=== PATIENT | female | born 1995 | race Caucasian/White ===

== ENCOUNTER 2020-01-16 07:28 | Inpatient (IN) ==
[2020-01-16] MEDS ORDERED: PENICILLIN G POTASSIUM 5 MILLIONUNT in DEXTROSE 5 % IN WATER 100 ML IV ONE ×2 (10:08)
[2020-01-16] MEDS ORDERED: DEXTROSE 5%-LACTATED RINGERS 1,000 ML IV PRN (10:08)
[2020-01-16] MEDS ORDERED: ONDANSETRON 4 MG TAB.RAPDIS PO PRN (10:08)
[2020-01-16] MEDS ORDERED: OXYTOCIN/DEXTROSE 5%-WATER 30 UNITS/500 ML BAG IV ONE ×2 (10:08→13:09)
[2020-01-16] MEDS: RINGER'S SOLUTION,LACTATED 1,000 ML IV ONE ×2 (10:24→11:27)
[2020-01-16] MEDS ORDERED: NALOXONE HCL 1 MG/1 ML SYRG IV PRN (11:12)
[2020-01-16] MEDS ORDERED: BUPIVACAINE HCL/0.9 % NACL/PF 250 ML EP PRN (11:12)
[2020-01-16] MEDS ORDERED: ONDANSETRON HCL/PF 2 MG/ML VIAL IV PRN (11:12)
[2020-01-16] MEDS ORDERED: BUPIVACAINE HCL/PF 30 ML VIAL EP SCH (11:15)
--- NOTE | 2020-01-16 11:29 | ANES ---
Anesthesia Pre Procedure Eval Vitals/Labs: Last Vital Signs Temp 36.7 C 01/16/20 07:45 Pulse 90 01/16/20 07:45 Resp 16 01/16/20 07:45 BP 107/71 01/16/20 07:45 Pulse Ox 100 01/16/20 07:45 HOME MEDICATIONS docusate sodium 100 mg capsule 100 mg PO DAILY PRN 08/12/19 [Last Taken Unknown] fluoxetine 20 mg capsule 20 mg PO DAILY 08/12/19 [Last Taken 01/03/20 21:00] ferrous sulfate 325 mg (65 mg iron) tablet 325 mg PO DAILY #30 tab 10/30/19 [Last Taken 01/03/20 21:00] Vits96/Iron Fum/Folic [ S] 1 tab PO DAILY 01/16/20 [Last Taken 01/15/20] Allergies/Adverse Reactions: Allergies Allergy/AdvReac Type Severity Reaction Status Date / Time No Known Allergies Allergy Verified 01/16/20 07:41 - Planned Procedure Planned Procedure: labor epidural Medication List Reviewed:: Yes Allergies Verified: Yes Medical History (Last Reviewed 01/16/20 @ 11:28 by Fabricio Mittal CRNA) Anemia Onset Date: 10/28/19 w/ Depression 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
--- NOTE | 2020-01-16 11:47 | ANES ---
Anesthesia Procedure Note Procedure Note: ANESTHESIA PROCEDURE NOTE Date of Procedure: 01/16/2020. Time of procedure: 1135. Performed by: Fabricio Mittal CRNA Carburetor Repairer: None. Preprocedure diagnosis: Active labor. Post procedure diagnosis: Same. Procedure: Insertion of labor epidural. Indications: The patient is a 24-year-old female in active labor requesting labor epidural for pain management. Findings: See below. Details of the procedure: The patient was placed in a sitting position. DuraPrep as well as Betadine swabs X3 was applied to the patient's back. Patient was then draped in a sterile fashion. Lidocaine 1% was infiltrated to the skin and subcutaneous tissues at the level of the L3-4 interspace. The epidural space was identified using a 18-gauge Tuohy needle with [id number] technique. Epidural catheter was inserted to a depth of 10 centimeters at skin. Negative test dose was elicited using 3 mL of 1.5% preservative-free lidocaine plus epinephrine 1 200,000. The epidural catheter was then taped and secured in place. A loading dose of 8 mL of 0.25% preservative-free bupivacaine was administered to the epidural catheter after negative aspiration for blood and CSF. EBL: Minimal. Fluids: N/A. Specimen: N/A. Post procedure condition: The patient tolerated the procedure well. No complications were noted. Thank you for this consultation. Fabricio Mittal CRNA
--- NOTE | 2020-01-16 11:47 | ANES ---
Post Anesthesia Assessment - Vital Signs Vitals: Last Vital Signs Temp 36.7 C 01/16/20 07:45 Pulse 90 01/16/20 07:45 Resp 16 01/16/20 07:45 BP 107/71 01/16/20 07:45 Pulse Ox 100 01/16/20 07:45 Airway Patency: Normal - Mental Status Level Of Consciousness: Awake - N/V Assessment Nausea/Vomiting Presence: None Dehydration:: No
--- NOTE | 2020-01-16 12:58 | HP ---
Chief Complaint - Chief Complaint Date of Service: 01/16/20 Time of Service: 12:56 Chief Complaint: contractions History of Present Illness: 24 yo at 38 5/7 wks presents to L&D complaining of painful contractions of increasing frequency and intensity which started last pm. This complicated by anemia, depression, smoker, and fall at 22 wks. 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 LGSIL (low grade squamous intraepithelial dysplasia) Onset Date: ~08/2018 Ovarian cyst Surgical History: Surgical History (Last Reviewed 01/16/20 @ 13:58 by Giovanny Blount DO) Status post colposcopy Onset Date: ~09/2018 History of wisdom tooth extraction Onset Date: ~2010 Family History: Family History (Last Reviewed 01/16/20 @ 13:58 by Giovanny Blount DO) Mother Hypercholesteremia Grandmother Cervical cancer Social History: (Last Reviewed 01/16/20 @ 13:59 by Giovanny Blount DO) Social History: Marital status: household members: spouse, children 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[place] current occupational exposures/hazards: No Highest education level completed: Associate degree: occupat Service: No Tobacco: Smoking Status: Current every day smoker tobacco type: cigarettes Smoking cigarettes per day: 10 Years smoked: 10 Smoking pack-years: 5.00 Alcohol: alcohol intake: former details: stopped with +UPT Substance Use: substance use type: does not use Dietary Habits: caffeine: Yes caffeine comment: 8-10 cups daily coffee/tea Type: coffee, tea Pets: pets and animals: cat(s) Review Of Systems (GEN) - Review of Systems Generalized/Overall Review: Present: No Symptoms Reported EENTM: Present: No Symptoms Reported Respiratory: Present: No Symptoms Reported Cardiac: Present: No Symptoms Reported Abdominal: Present: Other - contractions Genitourinary: Present: Other - pelvic pressure Musculoskeletal: Present: No Symptoms Reported Neurological: Present: No Symptoms Reported Skin: Present: No Symptoms Reported Endocrine: Present: No Symptoms Reported Immunizations: IMMUNIZATION HX Immunizations Up to Date Yes History of Influenza Vaccine Yes Allergies/Adverse Reactions: Allergies Allergy/AdvReac Type Severity Reaction Status Date / Time No Known Allergies Allergy Verified 01/16/20 07:41 Home Medications: HOME MEDICATIONS docusate sodium 100 mg capsule 100 mg PO DAILY PRN 08/12/19 [Last Taken Unknown] fluoxetine 20 mg capsule 20 mg PO DAILY 08/12/19 [Last Taken 01/03/20 21:00] ferrous sulfate 325 mg (65 mg iron) tablet 325 mg PO DAILY #30 tab 10/30/19 [Last Taken 01/03/20 21:00] Vits96/Iron Fum/Folic [ S] 1 tab PO DAILY 01/16/20 [Last Taken 01/15/20] Exam - Exam Vital Signs: Vital Signs - Last Taken Temp 36.7 C 01/16/20 07:45 Pulse 90 01/16/20 07:45 Resp 16 01/16/20 07:45 BP 107/71 01/16/20 07:45 Pulse Ox 100 01/16/20 07:45 Constitutional: Present: Alert, Oriented x3, Cooperative, Mild distress ENT Exam: Present: hearing grossly normal Neck: Absent: thyromegaly Breasts: Present: Exam deferred Respiratory: Present: lungs clear, no respiratory distress Cardiovascular/Chest: Present: regular rate, rhythm, no edema Abdomen: Present: soft, nontender, no rebound tenderness, other - gravid /Rectal: Present: Other - Cervix 3cm on arrival to triage, 5cm upon admission, Extremity: Present: non-tender, no pedal edema, no calf tenderness Skin Exam: Present: normal color, warm/dry, no cyanosis Neurologic: Present: alert, normal mood/affect, oriented x 3 Appearance: Present: appropriate appearance Eye contact: Present: cooperative, good eye contact Thoughts: Present: normal mood /affect Assessment/Plan - Assessment/Plan (1) Labor established Assessment: Admit for routine management of labor. Epidural and pitocin PRN. IV PCN per GBS protocol. Problem: Acute (2) Group B streptococcal carriage complicating Problem: Acute (3) Anemia Problem: Chronic Qualifiers: Anemia type: iron deficiency Iron deficiency anemia type: inadequate dietary iron intake Qualified Code(s): D50.8 - Other iron deficiency anemias (4) Depression Problem: Chronic Qualifiers: Depression Type: major depressive disorder Major depression recurrence: r ecurrent Active/Remission status: in remission of unspecified degree Qualified Code(s): F33.40 - Major depressive disorder, recurrent, in remission, unspecified
--- NOTE | 2020-01-16 13:08 | OR ---
Operative Report - Dictated Report Narrative: Spontaneous vaginal delivery of vigorously crying viable male at 1231 on 01/16/2020 with Apgars 8 and 9, weighing 2384 g in DOM position. Cord clamping delayed approximately 1 minute Placenta delivered complete, intact, meconium stained membranes, with three vessel cord Estimated blood loss: Less than 50 ml Anesthesia: Epidural Lacerations: 3 cm vaginal inclusion cyst on the posterior wall was excised and repaired after delivery using a scalpel to excise the cyst and closing the incision with 3-0 Vicryl Rapide. Moderate meconium stained fluid noted with spontaneous rupture of membranes just prior to delivery. History for MU History for Definition: * The number of deliveries resulting in a live the patient experienced prior to current hospitalization * The previous delivery of live twins or any live multiple gestation is considered one live event. *If primagravida or nulliparous is documented select zero for the number of previous live births. Live Events: Live Events: 2
[2020-01-16] MEDS ORDERED: oxyCODONE HCL/ACETAMINOPHEN 1 TAB TABLET PO PRN (13:09)
[2020-01-16] MEDS ORDERED: BENZOCAINE/MENTHOL 81 SPRAY CAN TP PRN (13:09)
[2020-01-16] MEDS ORDERED: IBUPROFEN 800 MG TABLET PO PRN ×2 (13:09)
[2020-01-16] MEDS ORDERED: BISACODYL 10 MG SUPP.RECT RC PRN (13:09)
[2020-01-16] MEDS ORDERED: GLYCERIN/WITCH HAZEL LEAF 40 APPL BOX TP PRN (13:09)
[2020-01-16] MEDS ORDERED: HYDROCORTISONE 30 APPL TUBE TP PRN (13:09)
[2020-01-16] MEDS ORDERED: SENNOSIDES 8.6 MG TABLET PO PRN (13:09)
[2020-01-16] MEDS ORDERED: PENICILLIN G POTASSIUM 2.5 MILLIONUNT in DEXTROSE 5 % IN WATER 100 ML IV SCH ×2 (14:11)
[2020-01-16] MEDS: DOCUSATE SODIUM 100 MG CAPSULE PO SCH (20:58)
[2020-01-17] MEDS: FLUoxetine HCL 20 MG CAPSULE PO SCH (08:13)
[2020-01-17] MEDS: PRENATAL VITS96/IRON FUM/FOLIC 1 TAB TABLET PO SCH (08:13)
[2020-01-17] MEDS: FERROUS SULFATE 325 MG TABLET PO SCH (08:13)
[2020-01-17] MEDS: DOCUSATE SODIUM 100 MG CAPSULE PO SCH ×2 (08:13→20:51)
--- NOTE | 2020-01-17 12:37 | PN ---
Subjective - Date and Time Seen Date: 01/17/20 Time: 12:36 Objective - Vitals Vitals: Last Vital Signs Temp 36.5 C 01/17/20 07:03 Pulse 78 01/17/20 07:03 Resp 17 01/17/20 07:03 BP 104/67 01/17/20 07:03 Pulse Ox 99 01/17/20 00:55 Patient denies complaints. Pumping and feeding baby Lochia wnl abdomen - soft, nontender Uterus -firm, at umbilicus - 1 no calf tenderness Impression: day #1 - s/p spontaneous vaginal delivery. Patient desires early discharge Plan: Continue routine care. If is cleared for discharge today patient will be discharged. Routine discharge instructions given to patient. Cauti Physician Documentation - Urinary Catheter Management Urethral (Hoffmann) Date of Insertion: 01/16/20 Time of Insertion: 12:00 Date of Removal: 01/16/20 Time of Removal: 12:25 Assessment/Plan - Problems/Diagnosis (1) Labor established Problem: Acute (2) Group B streptococcal carriage complicating Problem: Acute (3) Anemia Problem: Chronic Qualifiers: Anemia type: iron deficiency Iron deficiency anemia type: inadequate dietary iron intake Qualified Code(s): D50.8 - Other iron deficiency anemias (4) Depression Problem: Chronic Qualifiers: Depression Type: major depressive disorder Major depression recurrence: recurrent Active/Remission status: in remission of unspecified degree Qualified Code(s): F33.40 - Major depressive disorder, recurrent, in remission, unspecified
[2020-01-18 07:41] VITALS: BP 105/73
[2020-01-18] MEDS: DOCUSATE SODIUM 100 MG CAPSULE PO SCH (08:04)
[2020-01-18] MEDS: FLUoxetine HCL 20 MG CAPSULE PO SCH (08:04)
[2020-01-18] MEDS: PRENATAL VITS96/IRON FUM/FOLIC 1 TAB TABLET PO SCH (08:04)
[2020-01-18] MEDS: FERROUS SULFATE 325 MG TABLET PO SCH (08:07)
--- NOTE | 2020-01-18 11:59 | PN ---
Subjective - Date and Time Seen Date: 01/18/20 Time: 11:58 Objective - Vitals Vitals: Last Vital Signs Temp 36.8 C 01/18/20 07:12 Pulse 83 01/18/20 07:12 Resp 20 01/18/20 07:12 BP 105/73 01/18/20 07:12 Pulse Ox 96 01/18/20 07:12 Patient denies complaints. Lochia wnl abdomen - soft, nontender Uterus -firm, at umbilicus - 2 no calf tenderness Impression: day #2 - s/p spontaneous vaginal delivery. Depression- stable Plan: Routine discharge instructions. Continue antidepressant medication as prescribed. Cauti Physician Documentation - Urinary Catheter Management Urethral (Hoffmann) Date of Insertion: 01/16/20 Time of Insertion: 12:00 Date of Removal: 01/16/20 Time of Removal: 12:25 Assessment/Plan - Problems/Diagnosis (1) Labor established Problem: Acute (2) Group B streptococcal carriage complicating Problem: Acute (3) Anemia Problem: Chronic Qualifiers: Anemia type: iron deficiency Iron deficiency anemia type: inadequate dietary iron intake Qualified Code(s): D50.8 - Other iron deficiency anemias (4) Depression Problem: Chronic Qualifiers: Depression Type: major depressive disorder Major depression recurrence: recurrent Active/Remission status: in remission of unspecified degree Qualified Code(s): F33.40 - Major depressive disorder, recurrent, in remission, unspecified
== END 2020-01-18 12:45 | disposition home or self-care (01) | DRG 768 ==
LOC: OBCLINIC 07:28 → OB 10:05
PROVIDERS: ADMIT Obstetrics & Gynecology; ATTEND Obstetrics & Gynecology
CPT/HCPCS: 59025